=== PATIENT | female | born 1985 | race Caucasian/White ===

== ENCOUNTER 2017-08-04 07:21 | Outpatient (CLI) | END 2017-08-04 09:10 | disposition home or self-care (01) ==

== ENCOUNTER 2017-08-04 11:46 | Outpatient (CLI) | END 2017-08-04 14:00 | disposition home or self-care (01) ==

== ENCOUNTER 2017-08-08 10:17 | Inpatient (IN) | END 2017-08-10 14:30 | disposition home or self-care (01) | DRG 775 ==

== ENCOUNTER 2017-12-05 15:20 | Emergency (ER) | END 2017-12-05 17:33 | disposition home or self-care (01) ==